=== PATIENT | male | born 1960 | race Asian ===

== ENCOUNTER 2019-08-16 16:45 | Emergency (ER) | payer OTHER ==
--- NOTE | 2019-08-16 16:51 | PDOC ---
Rapid Medical Evaluation Time Seen by Provider: 08/16/19 16:48 Medical Evaluation: 08/16/19 16:48 CC: sudden onset memory loss occurring today around 1PM PE: [place] negative. Gait steady Orders: stroke w/u Patient will proceed to ED for continued evaluation. Discharge Disposition - Diagnosis Memory loss of unknown cause - Referrals - Patient Instructions - Post Discharge Activity
[2019-08-16 16:54] VITALS: BMI 24.3
[2019-08-16 17:37] LABS: BASO % 1.1 % (0-2.0); EOS % 1.6 % (0-4.5); HEMATOCRIT 50.4 % (35.4-49); HEMOGLOBIN 16.8 GM/dL (11.7-16.9); LYMPH % 30.6 % (8-40); MCH 28.1 pg (25.7-33.7); MCHC 33.4 g/dl (32.0-35.9); MEAN CELL VOLUME 84.1 fl (80-96); MONO % 7.8 % (3.8-10.2); NEUT % 58.9 % (42.8-82.8); PLATELET COUNT 186 K/MM3 (134-434); RDW 13.2 % (11.9-15.9); WHITE BLOOD COUNT 4.5 K/mm3 (4.0-10.0)
[2019-08-16 17:50] LABS: INR 0.89 (0.83-1.09); PROTHROMBIN TIME (PATIENT) 10.5 SEC (9.7-13.0)
--- NOTE | 2019-08-16 18:10 | PDOC ---
History of Present Illness - General Chief Complaint: Altered Mental Status Stated Complaint: DISORIENTED/HBP Time Seen by Provider: 08/16/19 16:48 - History of Present Illness Initial Comments: Ameya Hernandez is a 59yo otherwise healthy man who presents with global amnesia that started around 3:30 today. He reports that he took a nap from about 1pm to 3:30pm, and when he woke up he could not remember anything that happened during the morning. He called his , who was out of the house, and she returned home , gave him 81mg ASA, and brought him to the hospital. His reports that Mr Hernandez was in his usual state of health this morning; they went to the park, and he stopped by his work. He says that he could not remember doing any of this, though his memory has started to return at this point. His says that when the pt called her, he sounded normal and was making sense. Mr Hernandez additionally denies any word-finding difficulties, vision loss, hearing changes, loss of balance, difficulty walking, facial droop , focal weakness, numbness/tingling, or any other neurological deficits. He has never had anything like this happen before. He takes no medications or supplements at home. NIH Stroke Scale - Last Known Well Date/Time & Onset Date Last Known Well: 08/16/19 Time Last Known Well: 13:00 - Initial Evaluation Level of consciousness: Alert Ask patient the month and their age: Answers both correctly Ask patient to open & close eyes; make fist and let go: Obeys both correctly Best gaze (horizontal eye movement): Normal Visual field testing: No visual field loss Facial paresis (Show teeth/raise eyebrows/close eyes tight): Complete paralysis of one or both sides (Upper and lower face) Motor Function: Right Arm: Normal (extends arm 90 (or 45) degrees for 10 seconds without drift Motor Function: Left Leg: Normal (extends leg 30 degrees for 5 seconds without drift) Motor Function: Right Leg: Normal (extends leg 30 degrees for 5 seconds without drift) Limb Ataxia: No ataxia Sensory(Use pinprick test arms,legs,trunk,face/side to side): Normal Best language (Describe picture, name items, read sentences): No Aphasia Dysarthria (read several words): Normal articulation Extinction and Inattention: No abnormality Past History - Past Medical History Allergies/Adverse Reactions: Allergies Allergy/AdvReac Type Severity Reaction Status Date / Time metronidazole [From Flagyl] Allergy Verified 08/16/19 17:00 COPD: No Diabetes: Yes (borderline) - Immunization History Immunization Up to Date: No - Psycho Social/Smoking Cessation Hx Smoking History: Never smoked Have you smoked in the past 12 months: No Information on smoking cessation initiated: No Hx Alcohol Use: No Drug/Substance Use Hx: No Review of Systems - Review of Systems Comments:: General: No fevers, no chills, no weight or appetite change, no malaise HEENT: No changes in vision, no changes in hearing, no congestion, no sore throat CV: No chest pain, no palpitations, no LE edema Pulm: No SOB, no cough, no wheezing GI: No nausea or vomiting, no change in bowel habits, no melena : No frequency, no urgency, no dysuria Musc: No back pain, no joint swelling, no recent injury Skin: No rash, no lesions, no erythema Endo: No excessive thirst, no heat/cold intolerance Heme: No unusual bruising or bleeding, no swollen glands Neuro: See HPI Vasc: No claudication Psych: No recent change in mood, no SI or HI *Physical Exam - Vital Signs Last Vital Signs Temp Pulse Resp BP Pulse Ox 98.5 F 83 16 137/89 99 08/16/19 16:49 08/16/19 16:49 08/16/19 16:49 08/16/19 16:49 08/16/19 16:49 - Physical Exam Comments: General: Comfortable, no acute distress HEENT: PERRL, EOMI, MMM, voice normal, normal neck ROM Cards: RRR, no murmur appreciated Pulm: Comfortable on room air, clear to auscultation bilaterally Abd: Soft, nontender, nondistended Ext: Atraumatic. No LE edema. ROM intact. Strength 5/5 and equal bilaterally Vasc: Extremities WWP. Skin: Normal color, no rashes or lesions Neuro: A&Ox3, CN grossly intact, normal speech, motor/sensory grossly intact and symmetric. No focal deficits (see stroke scale) Psych: Mood appropriate to situation ED Treatment Course - LABORATORY CBC & Chemistry Diagram: 08/16/19 17:15 08/16/19 17:15 - ADDITIONAL ORDERS Additional order review: Laboratory Results 08/16/19 08/16/19 17:15 17:13 PT with INR 10.50 INR 0.89 POC Glucometer 108 08/16/19 08/16/19 17:15 17:13 RBC 6.00 H MCV 84.1 MCHC 33.4 RDW 13.2 MPV 8.0 Neutrophils % 58.9 Lymphocytes % 30.6 Monocytes % 7.8 Eosinophils % 1.6 Basophils % 1.1 POC Glucometer 108 Medical Decision Making - Medical Decision Making 08/16/19 18:10 Ameya Hernandez is a 59yo otherwise healthy man who presents with global amnesia that started around 3:30 today. He was last seen well at 1pm and was in his normal state of health this morning. - Stroke scale 0 currently - CVA workup sent from [facility]. Labs pending - Pt to CT 08/16/19 19:00 - CT head completed, reviewd in ED, no focal deficits appreciated - CBC without abnormalities. Trop negative. Chemistry pending 08/16/19 19:22 - Patient signed out to Dr Page for the remainder of his ED care Discussed with Dr Sidney Flores PGY2 Discharge - Discharge Information Problems reviewed: Yes Clinical Impression/Diagnosis: Memory loss of unknown cause Condition: Stable - Follow up/Referral - Patient Discharge Instructions - Post Discharge Activity
--- NOTE | 2019-08-16 18:14 | PDOC ---
Attending Attestation - Resident Resident Name: Felicity Flores - ED Attending Attestation I have performed the following: I have examined & evaluated the patient, The case was reviewed & discussed with the resident, I agree w/resident's findings & plan, Exceptions are as noted - HPI HPI: 08/16/19 18:10 59-year-old male had a loss of memory at 1 PM today he could not remember anything from the morning. He denies any significant past medical history - Physicial Exam PE: 08/16/19 18:10 wnwd 59 yo male enck supple lungs cta b/l abdomen nontender extremities no edema cvs [id number] skin warm and dry neuro axox3,no facial droop,motor strength 5/5 b/l,no drift, no ataxia - Medical Decision Making 08/16/19 18:14 59 yo male with c/o of amnesia for several hours today. 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
[2019-08-16 19:27] LABS: PH,URINE 6.5 (5.0-8.0); URINE APPEARANCE CLEAR; URINE BILIRUBIN NEGATIVE (NEGATIVE); URINE COLOR YELLOW; URINE GLUCOSE (UA) NEGATIVE (NEGATIVE); URINE KETONE NEGATIVE (NEGATIVE); URINE LEUK ESTERASE NEGATIVE (NEGATIVE); URINE NITRITE NEGATIVE (NEGATIVE); URINE PROTEIN NEGATIVE (NEGATIVE); URINE UROBILINOGEN 0.2 mg/dL (0.2-1.0)
[2019-08-16 20:04] LABS: COCAINE, UR NEGATIVE ng/ml (CUTOFF=300); OPIATES, URI NEGATIVE ng/ml (CUTOFF=300); PHENCYCLIDINE,URINE NEGATIVE ng/ml (CUTOFF=25); URINE AMPHETAMINES NEGATIVE ng/ml (CUTOFF=500); URINE BENZODIAZEPINES NEGATIVE ng/ml (CUTOFF=200)
[2019-08-16 20:05] LABS: METHADONE, UR NEGATIVE ng/ml (CUTOFF=300); URINE BARBITURATES NEGATIVE ng/ml (CUTOFF=200)
[2019-08-16 20:15] LABS: CREATININE 1.3 mg/dL (0.55-1.3); POTASSIUM 4.9 mmol/L (3.5-5.1)
[2019-08-16 20:16] LABS: ALBUMIN 4.4 g/dl (3.4-5.0); CALCIUM 9.2 mg/dL (8.5-10.1); TOT PROT 7.6 g/dl (6.4-8.2)
[2019-08-16 20:17] LABS: BILIRUBIN,TOTAL 0.5 mg/dL (0.2-1)
[2019-08-16 21:13] LABS: BLOOD UREA NITROGEN 19.2 mg/dL (7-18)
--- NOTE | 2019-08-16 23:07 | PDOC ---
*Physical Exam - Vital Signs Last Vital Signs Temp Pulse Resp BP Pulse Ox 98.5 F 83 16 137/89 99 08/16/19 16:49 08/16/19 16:49 08/16/19 16:49 08/16/19 16:49 08/16/19 16:49 ED Treatment Course - LABORATORY CBC & Chemistry Diagram: 08/16/19 17:15 08/16/19 17:15 - ADDITIONAL ORDERS Additional order review: Laboratory Results 08/16/19 08/16/19 08/16/19 19:00 19:00 17:15 PT with INR INR Sodium Potassium Chloride Carbon Dioxide Anion Gap BUN Creatinine Est GFR (CKD-EPI)AfAm Est GFR (CKD-EPI)NonAf POC Glucometer Random Glucose Calcium Total Bilirubin AST ALT Alkaline Phosphatase Ammonia Creatine Kinase Creatine Kinase Index CK-MB (CK-2) Troponin I Total Protein Albumin TSH Urine Color Yellow Urine Appearance Clear Urine pH 6.5 Ur Specific [place] 1.014 Urine Protein Negative Urine Glucose (UA) Negative Urine Ketones Negative Urine Blood Negative Urine Nitrite Negative Urine Bilirubin Negative Urine Urobilinogen 0.2 Ur Leukocyte Esterase Negative Opiates Screen Negative Methadone Screen Negative Barbiturate Screen Negative Phencyclidine Screen Negative Ur Amphetamines Screen Negative MDMA (Ecstasy) Screen Negative Benzodiazepines Screen Negative Cocaine Screen Negative U Marijuana (THC) Screen Negative Blood Type B POSITIVE Antibody Screen Negative 08/16/19 08/16/19 08/16/19 17:15 17:15 17:15 PT with INR 10.50 INR 0.89 Sodium 142 Potassium 4.9 Chloride 110 H Carbon Dioxide 23 Anion Gap 9 BUN 19.2 H Creatinine 1.3 Est GFR (CKD-EPI)AfAm 68.74 Est GFR (CKD-EPI)NonAf 59.31 POC Glucometer Random Glucose 95 Calcium 9.2 Total Bilirubin 0.5 AST 34 ALT 27 Alkaline Phosphatase 72 Ammonia Creatine Kinase 180 Creatine Kinase Index 0.7 CK-MB (CK-2) 1.3 Troponin I < 0.02 Total Protein 7.6 Albumin 4.4 TSH 2.26 Urine Color Urine Appearance Urine pH Ur Specific [place] Urine Protein Urine Glucose (UA) Urine Ketones Urine Blood Urine Nitrite Urine Bilirubin Urine Urobilinogen Ur Leukocyte Esterase Opiates Screen Methadone Screen Barbiturate Screen Phencyclidine Screen Ur Amphetamines Screen MDMA (Ecstasy) Screen Benzodiazepines Screen Cocaine Screen U Marijuana (THC) Screen Blood Type Antibody Screen 08/16/19 08/16/19 17:15 17:13 PT with INR INR Sodium Potassium Chloride Carbon Dioxide Anion Gap BUN Creatinine Est GFR (CKD-EPI)AfAm Est GFR (CKD-EPI)NonAf POC Glucometer 108 Random Glucose Calcium Total Bilirubin AST ALT Alkaline Phosphatase Ammonia 24.90 Creatine Kinase Creatine Kinase Index CK-MB (CK-2) Troponin I Total Protein Albumin TSH Urine Color Urine Appearance Urine pH Ur Specific [place] Urine Protein Urine Glucose (UA) Urine Ketones Urine Blood Urine Nitrite Urine Bilirubin Urine Urobilinogen Ur Leukocyte Esterase Opiates Screen Methadone Screen Barbiturate Screen Phencyclidine Screen Ur Amphetamines Screen MDMA (Ecstasy) Screen Benzodiazepines Screen Cocaine Screen U Marijuana (THC) Screen Blood Type Antibody Screen 08/16/19 08/16/19 17:15 17:13 RBC 6.00 H MCV 84.1 MCHC 33.4 RDW 13.2 MPV 8.0 Neutrophils % 58.9 Lymphocytes % 30.6 Monocytes % 7.8 Eosinophils % 1.6 Basophils % 1.1 POC Glucometer 108 - RADIOLOGY Radiology Studies Ordered: Category Date Time Status BRAIN MRI W/O CONTRAST [MRI] Stat MRI 08/16/19 21:23 Taken Discharge - Discharge Information Problems reviewed: Yes Clinical Impression/Diagnosis: Memory loss of unknown cause Condition: Stable Disposition: HOME - Admission No - Follow up/Referral Referrals: Abhilash Cordova MD [Staff Physician] - - Patient Discharge Instructions Patient Printed Discharge Instructions: DI for Transient Ischemic Attack Additional Instructions: You were seen in our emergency department for the evaluation of your amnesia. your brain mri was negative. we spoke to Dr. Cordova who recommends you follow up with them within 24 hours. His number is within the discharge papers. Please follow up with your primary medical doctor within 1 week after discharge. Please return to the emergency department if you have worsening symptoms. Thank you. - Post Discharge Activity
[2019-08-16 23:23] VITALS: BP 102/70; PULSE 77; TEMP 98.2
--- NOTE | 2019-08-17 09:57 | EKG ---
Test Reason : Blood Pressure : / mmHG Vent. Rate : 073 BPM Atrial Rate : 073 BPM P-R Int : 164 ms QRS Dur : 090 ms QT Int : 390 ms P-R-T Axes : 072 013 055 degrees QTc Int : 429 ms SINUS RHYTHM WITH FREQUENT PREMATURE VENTRICULAR COMPLEXES POSSIBLE LEFT ATRIAL ENLARGEMENT ANTEROSEPTAL INFARCT , AGE UNDETERMINED ABNORMAL ECG NO PREVIOUS ECGS AVAILABLE Confirmed by JHON LARSON, MILES ([id number]) on 08/17/2019 9:57:03 AM Referred By: Confirmed By:MILES FERREIRA MD
== END 2019-08-16 20:20 | disposition home or self-care (01) ==
LOC: JER 16:45
DX: G45.4 Transient global amnesia (principal); E11.9 Type 2 diabetes mellitus without complications
CPT/HCPCS: 36415; 70450-TC; 70551-TC; 71045-TC-FY; 80053; 80307; 81003; 82140; 82550; 82553; 82962; 84443; 84484; 85025; 85610; 86850; 86900; 86901; 93005; 93010; 99283-25

== ENCOUNTER 2022-06-28 05:14 | Inpatient (IN) | payer OTHER ==
[2022-06-28 05:59] LABS: EPI CELLS 1 /uL (0-25.1); HYALINE CASTS 0 /uL (0-3.1); PH,URINE 6.5 (5.0-8.0); URINE APPEARANCE CLEAR; URINE BACTERIA 0 /uL (0-1359); URINE BILIRUBIN NEGATIVE (NEGATIVE); URINE COLOR YELLOW; URINE GLUCOSE (UA) NEGATIVE (NEGATIVE); URINE KETONE NEGATIVE (NEGATIVE); URINE LEUK ESTERASE NEGATIVE (NEGATIVE); URINE NITRITE NEGATIVE (NEGATIVE); URINE PROTEIN NEGATIVE (NEGATIVE); URINE RBC 244 /uL (0-23.9); URINE UROBILINOGEN 0.2 mg/dL (0.2-1.0); URINE WBC 1 /uL (0-25.8)
[2022-06-28] MEDS ORDERED: SODIUM CHLORIDE 0.9% 500 ML INFUS.BAG IV ONE (05:59)
[2022-06-28] MEDS ORDERED: KETOROLAC TROMETHAMINE 30 MG/1 ML VIAL IVPUSH ONE (05:59)
[2022-06-28] MEDS ORDERED: KETOROLAC TROMETHAMINE 30 MG/1 ML VIAL ONE (06:13)
[2022-06-28 06:46] LABS: ALBUMIN 4.2 g/dl (3.4-5.0); CALCIUM 9.5 mg/dL (8.5-10.1)
[2022-06-28 06:47] LABS: BASO % 0.8 % (0-2.0); BLOOD UREA NITROGEN 14.5 mg/dL (7-18); EOS % 1.3 % (0-4.5); HEMATOCRIT 49.2 % (35.4-49); HEMOGLOBIN 16.4 GM/dL (11.7-16.9); LYMPH % 28.7 % (8-40); MCH 27.4 pg (25.7-33.7); MCHC 33.3 g/dl (32.0-35.9); MEAN CELL VOLUME 82.4 fl (80-96); MEAN PLT VOLUME 7.4 fl (7.5-11.1); MONO % 6.2 % (3.8-10.2); PLATELET COUNT 174 10^3/uL (134-434); RBC 5.97 M/mm3 (4.00-5.60); RDW 13.2 % (11.9-15.9); WHITE BLOOD COUNT 4.3 K/mm3 (4.0-10.0)
[2022-06-28 06:50] LABS: CREATININE 1.3 mg/dL (0.55-1.3)
[2022-06-28 06:51] LABS: BILIRUBIN,TOTAL 0.6 mg/dL (0.2-1); TOT PROT 7.3 g/dl (6.4-8.2)
[2022-06-28] MEDS ORDERED: TAMSULOSIN HCL 0.4 MG CAP PO ONE ×2 (07:49→18:18)
[2022-06-28] MEDS ORDERED: TAMSULOSIN HCL 0.4 MG CAP ONE (08:00)
[2022-06-28 12:58] VITALS: BMI 24.9
[2022-06-28] MEDS: oxyCODONE HCL 5 MG TABLET PO PRN (13:54)
[2022-06-28] MEDS ORDERED: ACETAMINOPHEN 325 MG TABLET (FP) PO PRN (18:18)
[2022-06-28] MEDS ORDERED: ONDANSETRON 4 MG/2 ML VIAL IVPUSH PRN (18:20)
[2022-06-28] MEDS: LACTATED RINGERS SOLUTION 1,000 ML IV SCH (18:55)
[2022-06-28] MEDS: DOCUSATE SODIUM 100 MG CAPSULE (FP) PO PRN (18:56)
[2022-06-29] MEDS: ACETAMINOPHEN 500 MG TABLET (FP) PO PRN ×2 (07:07→22:55)
[2022-06-29 08:50] LABS: BASO % 0.5 % (0-2.0); HEMATOCRIT 44.6 % (35.4-49); HEMOGLOBIN 14.7 GM/dL (11.7-16.9); LYMPH % 14.3 % (8-40); MCH 27.3 pg (25.7-33.7); MEAN CELL VOLUME 82.7 fl (80-96); MEAN PLT VOLUME 7.5 fl (7.5-11.1); MONO % 7.6 % (3.8-10.2); NEUT % 76.6 % (42.8-82.8); PLATELET COUNT 151 10^3/uL (134-434); RDW 13.4 % (11.9-15.9)
[2022-06-29] MEDS: TAMSULOSIN HCL 0.4 MG CAP PO SCH (08:56)
[2022-06-29 09:07] LABS: CALCIUM 8.7 mg/dL (8.5-10.1)
[2022-06-29 09:08] LABS: ALBUMIN 3.5 g/dl (3.4-5.0); BLOOD UREA NITROGEN 14.3 mg/dL (7-18); MAGNESIUM 2.2 mg/dL (1.8-2.4)
[2022-06-29 09:11] LABS: CREATININE 1.8 mg/dL (0.55-1.3); PHOSPHOROUS 2.9 mg/dL (2.5-4.9)
[2022-06-29 09:13] LABS: BILIRUBIN,TOTAL 0.7 mg/dL (0.2-1); TOT PROT 6.3 g/dl (6.4-8.2)
[2022-06-29] MEDS ORDERED: ASPIRIN 81 MG CHEWABLE TABLETS PO SCH (10:00)
[2022-06-29] MEDS: CYANOCOBALAMIN 1,000 MCG TABLET (FP) PO SCH (10:01)
[2022-06-29] MEDS: ENOXAPARIN NA (PORCINE) 40 MG/0.4 ML DISP.SYRIN SQ SCH (10:02)
[2022-06-29] MEDS: oxyCODONE HCL 5 MG TABLET PO PRN ×2 (12:48→21:53)
[2022-06-29] MEDS: LACTATED RINGERS SOLUTION 1,000 ML IV SCH (16:50)
[2022-06-30] MEDS ORDERED: KETOROLAC TROMETHAMINE 15 MG/ML VIAL IVPUSH ONE (02:52)
[2022-06-30] MEDS: TAMSULOSIN HCL 0.4 MG CAP PO SCH (09:28)
[2022-06-30] MEDS: LACTATED RINGERS SOLUTION 1,000 ML IV SCH ×3 (09:28→19:30)
[2022-06-30] MEDS: ENOXAPARIN NA (PORCINE) 40 MG/0.4 ML DISP.SYRIN SQ SCH (09:29)
[2022-06-30] MEDS: CYANOCOBALAMIN 1,000 MCG TABLET (FP) PO SCH (09:32)
[2022-06-30] MEDS: DOCUSATE SODIUM 100 MG CAPSULE (FP) PO PRN (13:09)
[2022-06-30] MEDS: ACETAMINOPHEN 500 MG TABLET (FP) PO PRN (13:09)
[2022-06-30] MEDS: oxyCODONE HCL 5 MG TABLET PO PRN (16:41)
[2022-07-01] MEDS: oxyCODONE HCL 5 MG TABLET PO PRN (07:57)
[2022-07-01] MEDS: ACETAMINOPHEN 500 MG TABLET (FP) PO PRN (09:25)
[2022-07-01] MEDS: CYANOCOBALAMIN 1,000 MCG TABLET (FP) PO SCH (09:27)
[2022-07-01] MEDS: ENOXAPARIN NA (PORCINE) 40 MG/0.4 ML DISP.SYRIN SQ SCH (09:27)
[2022-07-01] MEDS: TAMSULOSIN HCL 0.4 MG CAP PO SCH (09:27)
[2022-07-01 09:32] LABS: BASO % 0.6 % (0-2.0); EOS % 1.8 % (0-4.5); HEMATOCRIT 45.6 % (35.4-49); HEMOGLOBIN 15.7 GM/dL (11.7-16.9); LYMPH % 22.2 % (8-40); MCH 28.3 pg (25.7-33.7); MCHC 34.4 g/dl (32.0-35.9); MEAN CELL VOLUME 82.3 fl (80-96); MEAN PLT VOLUME 7.2 fl (7.5-11.1); MONO % 7.9 % (3.8-10.2); NEUT % 67.5 % (42.8-82.8); PLATELET COUNT 150 10^3/uL (134-434); RBC 5.55 M/mm3 (4.00-5.60); RDW 13.2 % (11.9-15.9); WHITE BLOOD COUNT 4.2 K/mm3 (4.0-10.0)
[2022-07-01 09:47] LABS: BLOOD UREA NITROGEN 16.3 mg/dL (7-18); CALCIUM 9.2 mg/dL (8.5-10.1)
[2022-07-01 09:51] LABS: CREATININE 1.4 mg/dL (0.55-1.3)
[2022-07-01] MEDS ORDERED: MIDAZOLAM HCL 2 MG/2 ML SINGLE DOSE VIAL ONE (10:05)
[2022-07-01] MEDS ORDERED: LIDOCAINE HCL/PF 2% SDV 5ML VIAL ONE (10:05)
[2022-07-01] MEDS ORDERED: PROPOFOL 20 ML ONE (10:05)
[2022-07-01] MEDS ORDERED: KETOROLAC TROMETHAMINE 30 MG/1 ML VIAL ONE (10:05)
[2022-07-01] MEDS ORDERED: DEXAMETHASONE SOD PHOSPHATE 4 MG/1 ML VIAL ONE (10:05)
[2022-07-01] MEDS ORDERED: ceFAZolin SODIUM 1 GM VIAL IVPB ONE (10:38)
[2022-07-01] MEDS ORDERED: oxyCODONE HCL 5 MG TABLET PO PRN (11:29)
[2022-07-01] MEDS ORDERED: ONDANSETRON 4 MG/2 ML VIAL IVPUSH PRN (11:29)
[2022-07-01] MEDS ORDERED: ACETAMINOPHEN 500 MG TABLET (FP) PO PRN (11:29)
[2022-07-01] MEDS ORDERED: DOCUSATE SODIUM 100 MG CAPSULE (FP) PO PRN (11:29)
[2022-07-01] MEDS ORDERED: LACTATED RINGERS SOLUTION 1,000 ML IV SCH (12:15)
[2022-07-01] MEDS ORDERED: PHENAZOPYRIDINE HCL 100 MG TABLET (FP) PO SCH (14:00)
[2022-07-01] MEDS ORDERED: ACETAMINOPHEN 500 MG TABLET (FP) PO ONE (14:00)
[2022-07-01 14:40] VITALS: RESP 18
[2022-07-01 17:08] VITALS: BP 116/64; PULSE 82; TEMP 98.4
[2022-07-02] MEDS ORDERED: TAMSULOSIN HCL 0.4 MG CAP PO SCH (08:30)
[2022-07-02] MEDS ORDERED: CYANOCOBALAMIN 1,000 MCG TABLET (FP) PO SCH (10:00)
[2022-07-02] MEDS ORDERED: ENOXAPARIN NA (PORCINE) 40 MG/0.4 ML DISP.SYRIN SQ SCH (10:00)
[2022-07-02] MEDS ORDERED: ASPIRIN 81 MG CHEWABLE TABLETS PO SCH (10:00)
== END 2022-07-01 17:58 | disposition home or self-care (01) | DRG 661 ==
LOC: JER 05:14 → JERBED 08:46 → J8W 11:54
PROVIDERS: ADMIT Internal Medicine; ATTEND Internal Medicine
PROC: 0T768DZ Dilation of Right Ureter with Intraluminal Device, Via Natural or Artificial Opening Endoscopic (ICD-10-PCS; principal; 2022-07-01 10:30)
PROC: BT1DZZZ Fluoroscopy of Right Kidney, Ureter and Bladder (ICD-10-PCS; 2022-07-01 10:30)
DX: N13.2 Hydronephrosis with renal and ureteral calculous obstruction (principal); N17.9 Acute kidney failure, unspecified; N40.0 Benign prostatic hyperplasia without lower urinary tract symptoms
CPT/HCPCS: 36415; 74176-TC; 76000-TC-FY; 76775-TC; 76856-TC; 80048; 80053; 81003; 83735; 84100; 85025; 87086; 94760; 99285-25; C2617; C9803-CS; U0003; U0005

== ENCOUNTER 2022-07-29 04:31 | Day surgery (SDC) | payer OTHER ==
[2022-07-28 10:59] VITALS: BMI 23.7
[~2022-07-29 04:31] MED LIST: ceFAZolin SODIUM 1 GM VIAL IVPB ONE
[2022-07-29] MEDS ORDERED: MIDAZOLAM HCL 2 MG/2 ML SINGLE DOSE VIAL ONE (11:14)
[2022-07-29] MEDS ORDERED: ceFAZolin SODIUM 1 GM VIAL IVPB ONE (12:00)
[2022-07-29 13:50] VITALS: RESP 16
[2022-07-29 15:07] VITALS: BP 130/75; PULSE 84; TEMP 98.3
== END 2022-07-29 15:05 | disposition home or self-care (01) ==
LOC: JASU-SURG 04:31
PROVIDERS: ATTEND Urology
PROC: 0T9680Z Drainage of Right Ureter with Drainage Device, Via Natural or Artificial Opening Endoscopic (ICD-10-PCS; principal; 2022-07-29 10:45)
DX: N13.30 Unspecified hydronephrosis (principal)
CPT/HCPCS: 76000-TC-FY; 88300-TC; 94760; C2617

== ENCOUNTER 2023-07-13 04:53 | Day surgery (SDC) | payer OTHER ==
[2023-07-08 10:52] VITALS: BMI 24.2
[~2023-07-13 04:53] MED LIST changes: +BUPIVACAINE HCL/PF 0.5% (5MG/ML) 10 ML VIAL IJ ONE; -ceFAZolin SODIUM 1 GM VIAL IVPB ONE
[2023-07-13] MEDS ORDERED: BUPIVACAINE HCL/PF 0.5% (5MG/ML) 10 ML VIAL ONE (07:26)
[2023-07-13] MEDS ORDERED: MIDAZOLAM HCL 2 MG/2 ML SINGLE DOSE VIAL ONE (07:43)
[2023-07-13] MEDS ORDERED: KETOROLAC TROMETHAMINE 30 MG/1 ML VIAL ONE (07:43)
[2023-07-13] MEDS ORDERED: ONDANSETRON 4 MG/2 ML VIAL ONE (07:43)
[2023-07-13] MEDS ORDERED: DEXAMETHASONE SOD PHOSPHATE 4 MG/1 ML VIAL ONE ×2 (07:43→08:23)
[2023-07-13] MEDS ORDERED: PROPOFOL 20 ML ONE (07:43)
[2023-07-13] MEDS ORDERED: LIDOCAINE HCL/PF 2% SDV 5ML VIAL ONE (07:43)
[2023-07-13] MEDS ORDERED: ONDANSETRON 4 MG/2 ML VIAL IVPUSH PRN (07:58)
[2023-07-13] MEDS ORDERED: oxyCODONE HCL 5 MG TABLET PO PRN ×2 (07:58)
[2023-07-13] MEDS ORDERED: LACTATED RINGERS SOLUTION 1,000 ML IV SCH (08:00)
[2023-07-13] MEDS ORDERED: ceFAZolin SODIUM 1 GM VIAL IVPB ONE (08:14)
[2023-07-13] MEDS ORDERED: ceFAZolin SODIUM 1 GM VIAL ONE (08:17)
[2023-07-13] MEDS ORDERED: BUPIVACAINE HCL/PF 0.5% (5MG/ML) 10 ML VIAL IJ ONE (08:50)
[2023-07-13] MEDS ORDERED: oxyCODONE HCL 5 MG TABLET ONE (10:19)
[2023-07-13 10:33] VITALS: RESP 20; TEMP 97.9
[2023-07-13 11:47] VITALS: BP 130/82; PULSE 80
== END 2023-07-13 10:58 | disposition home or self-care (01) ==
LOC: JASU-SURG 04:53
PROVIDERS: ATTEND Orthopaedic Surgery
PROC: 0SBC4ZZ Excision of Right Knee Joint, Percutaneous Endoscopic Approach (ICD-10-PCS; principal; 2023-07-13 08:00)
DX: S83.241A Other tear of medial meniscus, current injury, right knee, initial encounter (principal); M25.561 Pain in right knee; M65.861 Other synovitis and tenosynovitis, right lower leg; X58.XXXA Exposure to other specified factors, initial encounter; Y93.9 Activity, unspecified; Y92.9 Unspecified place or not applicable
CPT/HCPCS: 94760

== ENCOUNTER 2025-08-12 07:10 | Emergency (ER) | payer OTHER ==
[2025-08-12 07:27] VITALS: BP 136/85; PULSE 89; RESP 18; TEMP 98.2; BMI 24.2
== END 2025-08-12 08:45 | disposition home or self-care (01) ==
LOC: JER 07:10
PROC: 0Y903ZZ Drainage of Right Buttock, Percutaneous Approach (ICD-10-PCS; principal; 2025-08-12)
DX: L02.31 Cutaneous abscess of buttock (principal)
CPT/HCPCS: 10006; 99284-25